=== PATIENT | female | born 1960 | race Caucasian/White ===

== ENCOUNTER → 2017-01-29 | Outpatient (CLI) | payer BC ==
[~2017-01-29] MED LIST: BUPR300T2 PO; Biotin PO; CYCL5TAB PO; DICLOFENAC SOD PO; FLUO20CA35 PO; FLUO40CA8 PO; HYDR-5688 PO; IBUP600T44 PO; LORA-741 PO; PRED20TA PO; PRLSR20 PO; PRM/625 PO; [UNRECOGNIZED DRUG - OTHER] PO
--- NOTE | 2017-02-01 14:26 | MAMMOGRAPHY REPORT ---
BILATERAL DIGITAL SCREENING MAMMOGRAM TOMOSYNTHESIS WITH CAD: 01/29/2017 CLINICAL HISTORY: Routine screening. Patient has no complaints. TECHNIQUE: Breast tomosynthesis in addition to standard 2D mammography was performed. Current study was also evaluated with a Computer Aided Detection (CAD) system. COMPARISON: Comparison is made to exams dated: 01/29/2016 mammogram, 12/21/2014 mammogram, 12/08/2013 m ammogram, 12/02/2012 mammogram, 11/27/2011 mammogram, and 11/21/2010 mammogram - [facility] nt. BREAST COMPOSITION: The tissue of both breasts is almost entirely fatty. FINDINGS: No suspicious masses, calcifications, or areas of architectural distortion are noted in e ither breast. There has been no significant interval change compared to prior exams. IMPRESSION: ACR BI-RADS CATEGORY 1: NEGATIVE There is no mammographic evidence of malignancy. A 1 year screening mammogram is recommended. The p atient will receive written notification of the results. Approximately 10% of breast cancers are not detected with mammography. A negative mammographic repor t should not delay biopsy if a clinically suggestive mass is present. Eneida Dempsey M.D. ah/:01/29/2017 15:56:55 Staff Development Coordinator: Coral PEREZ(Liz)(M), [facility] letter sent: Normal 1/2 BI-RADS Code: ACR BI-RADS Category 1: Negative
== END | disposition home or self-care (01) ==
LOC: C.MAMM 14:42
PROVIDERS: ATTEND Family Medicine
DX: Z12.31 Encounter for screening mammogram for malignant neoplasm of breast (principal)

== ENCOUNTER 2017-02-08 08:18 | Emergency (ER) | payer BC ==
[~2017-02-08] VITALS: Ht 157.5 cm; Wt 86.1 kg
[~2017-02-08 08:18] MED LIST changes: -CYCL5TAB PO; -FLUO20CA35 PO; -FLUO40CA8 PO; -HYDR-5688 PO; -IBUP600T44 PO; -PRED20TA PO; -PRLSR20 PO; -PRM/625 PO
[2017-02-08 08:19] VITALS: TEMP 36.8
[2017-02-08] MEDS ORDERED: SODIUM CHLORIDE 0.9% 1000ML 1,000 ML IV STA (08:32)
[2017-02-08] MEDS ORDERED: ONDANSETRON INJ 2 MG/ML 2 ML VIAL IV STA (08:32)
[2017-02-08] MEDS ORDERED: FLUO20CA35 PO (08:33)
[2017-02-08 08:39] VITALS: Ht 157.5 cm; Wt 86.1 kg
[2017-02-08 08:40] VITALS: O2SAT 98
--- NOTE | 2017-02-08 08:52 | DIAGNOSTIC IMAGING REPORT ---
CHEST ONE VIEW PORTABLE CLINICAL HISTORY: Weakness, dizziness. COMPARISON STUDY: 07/17/2012 FINDINGS: The cardiac and mediastinal contours are normal. There is no evidence of focal pulmonary consolidation. There is no evidence of failure. No pleural effusions are visualized.[ IMPRESSION: No active disease in the chest. Electronically signed by: Osei Holly M.D. 02/08/2017 8:51 AM Dictated Date/Time: 02/08/2017 8:51 AM
--- NOTE | 2017-02-08 09:12 | DIAGNOSTIC IMAGING REPORT ---
CT HEAD WITHOUT CONTRAST (CT) CLINICAL HISTORY: Weakness. Lightheadedness. Dizziness. COMPARISON STUDY: 11/03/2006 TECHNIQUE: Axial CT of the brain is performed from the vertex to the skull base. IV contrast was not administered for this examination. CT DOSE: 537.48 mGy.cm FINDINGS: No intra or extra-axial mass lesions are visualized. There is no CT evidence of acute cortical infarction. There is no evidence of midline shift. There is no acute hemorrhage. No calvarial fractures are visualized. There is no evidence of pathologic ventricular dilatation. There is no evidence of acute sinusitis IMPRESSION: Normal noncontrast head CT for age Electronically signed by: Osei Holly M.D. 02/08/2017 9:11 AM Dictated Date/Time: 02/08/2017 9:10 AM
[2017-02-08 09:18] LABS: URINE APPEARANCE CLEAR (CLEAR); URINE BILIRUBIN NEG (NEG); URINE COLOR YELLOW; URINE NITRITE NEG (NEG); URINE PH 5.5 (4.5-7.5); URINE SPECIFIC GRAVITY 1.007 (1.000-1.030); UROBILINOGEN NEG (NEG)
[2017-02-08 09:23] LABS: MANUAL MICROSCOPIC REQUIRED? NO; REVIEW REQ? NO
[2017-02-08 09:39] LABS: BASO % 0.4 %; BASO ABS # 0.03 K/uL (0-0.2); COMPLETE YES; EOS % 2.7 %; HEMATOCRIT 42.3 % (37-47); IG% 0.6 %; LYMPH % 24.7 %; LYMPH ABS # 1.76 K/uL (1.2-3.4); MEAN CELL VOLUME 87.8 fL (80-100); MEAN CORPUSCULAR HGB CONC 33.1 g/dl (32-36); MEAN PLATELET VOLUME 10.2 fL (7.4-10.4); MONO % 8.4 %; NEUT % 63.2 %; PLATELET COUNT 184 K/uL (130-400); RED BLOOD COUNT 4.82 M/uL (4.2-5.4); WHITE BLOOD COUNT 7.13 K/uL (4.8-10.8)
[2017-02-08 10:03] LABS: ALT/SGPT 22 U/L (12-78); AST/SGOT 17 U/L (15-37); BLOOD UREA NITROGEN 11 mg/dl (7-18); BUN/CREATININE RATIO 12.8 (10-20); CALCIUM 8.4 mg/dl (8.5-10.1); CARBON DIOXIDE 27 mmol/L (21-32); CHLORIDE 109 mmol/L (98-107); CREATININE 0.89 mg/dl (0.60-1.20); GLUCOSE 89 mg/dl (70-99); POTASSIUM 3.7 mmol/L (3.5-5.1); SODIUM 141 mmol/L (136-145)
[2017-02-08 10:14] LABS: ALKALINE PHOSPHATASE 98 U/L (45-117)
[2017-02-08 11:18] VITALS: BP 119/76; PULSE 84; O2SAT 98
--- NOTE | 2017-02-08 14:12 | EMERGENCY ROOM VISIT NOTE ---
History Report prepared by Milad: Mackenzie Ferrell Under the Supervision of: Dr. Kenneth Baldwin D.O. 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 She pulled over and called her and he brought her into the ED. The patient states that she felt weak and dizzy. She describes the dizziness as feeling like she was going to experience syncope and states that the room was not spinning around her. She states that she did not notice any focal weakness. The patient denies headaches, changes in vision, fevers, cough, rhinorrhea, sore throat, chest pain, and shortness of breath. She states that she developed nausea after she became dizzy, but she denies vomiting. The patient states that nausea has subsided since then, but it still comes back intermittently. The near-syncope does not seem to be associated with the nausea. She states that she has also experienced the dizziness intermittently since it occurred 45 minutes ago. The patient also developed lightheadedness upon being evaluated. She states that she has not started any new medications and has not missed any doses of her daily medications. Source of History: patient Onset: 45 minutes INFORMATICS MANAGER Position: head Quality: other (dizziness) Timing: intermittent Associated Symptoms: + nausea, No SOB, No chest pain, No cough, No fevers, No sorethroat, No vomiting Note: no focal weakness, no changes in vision, no rhinorrhea Review of Systems See HPI for pertinent positives & negatives. A total of 10 systems reviewed and were otherwise negative. Past Medical & Surgical Medical Problems: (1) Anxiety Family History No pertinent family history Social History Smoking Status: Former Smoker Marital Status: Housing Status: lives with family Occupation Status: employed Current/Historical Medications Scheduled Estrogens, Conjugated (Premarin), 0.625 MG PO DAILY Fluoxetine (Prozac), 20 MG PO DAILY Omeprazole (Prilosec), 20 MG PO DAILY Allergies Coded Allergies: Penicillins (Verified Allergy, Unknown, 02/08/17) Tetracyclines (Verified Allergy, Unknown, 02/08/17) Physical Exam Vital Signs Date Time Temp Pulse Resp B/P Pulse Ox O2 Delivery O2 Flow Rate FiO2 02/08/17 11:18 84 119/76 98 02/08/17 11:04 60 18 119/76 98 Room Air 02/08/17 10:17 54 18 107/69 98 Room Air 02/08/17 08:56 75 140/89 84 136/98 85 153/87 02/08/17 08:53 76 02/08/17 08:40 98 Room Air 02/08/17 08:40 98 Room Air 02/08/17 08:19 36.8 75 18 128/80 98 Room Air Physical Exam GENERAL: alert, sitting up in bed, well appearing, well nourished, no distress, non-toxic EYE EXAM: normal conjunctiva, PERRL and EOM's intact OROPHARYNX: no exudate, no erythema, lips, buccal mucosa, and tongue normal and mucous membranes are moist NECK: supple, no nuchal rigidity, no adenopathy, non-tender LUNGS: Clear to auscultation. Normal chest wall mechanics HEART: no murmurs, S1 normal and S2 normal ABDOMEN: abdomen soft, non-tender, normo-active bowel sounds, no masses, no rebound or guarding. BACK: Back is symmetrical on inspection and there is no deformity, no midline tenderness, no CVA tenderness. SKIN: no rashes and no bruising UPPER EXTREMITIES: upper extremities are grossly normal. LOWER EXTREMITIES: No pitting edema. NEURO EXAM: Normal sensorium, cranial nerves II-XII intact, normal speech, no weakness of arms, no weakness of legs. No drift. Finger to nose intact. Gross sensation intact. Medical Decision & Procedures ER Provider Diagnostic Interpretation: Radiology results as stated below per my review and the radiologist's interpretation: CHEST ONE VIEW PORTABLE FINDINGS: The cardiac and mediastinal contours are normal. There is no evidence of focal pulmonary consolidation. There is no evidence of failure. No pleural effusions are visualized.[ IMPRESSION: No active disease in the chest. Electronically signed by: Osei Holly M.D. 02/08/2017 8:51 AM Dictated Date/Time: 02/08/2017 8:[address] HEAD WITHOUT CONTRAST (CT) FINDINGS: No intra or extra-axial mass lesions are visualized. There is no CT evidence of acute cortical infarction. There is no evidence of midline shift. There is no acute hemorrhage. No calvarial fractures are visualized. There is no evidence of pathologic ventricular dilatation. There is no evidence of acute sinusitis IMPRESSION: Normal noncontrast head CT for age Electronically signed by: Osei Holly M.D. 02/08/2017 9:11 AM Dictated Date/Time: 02/08/2017 9:10 AM Laboratory Results 02/08/17 09:18 Red Blood Count 4.82, Mean Corpuscular Volume 87.8, Mean Corpuscular Hemoglobin 29.0, Mean Corpuscular Hemoglobin Concent 33.1, Mean Platelet Volume 10.2, Neutrophils (%) (Auto) 63.2, Lymphocytes (%) (Auto) 24.7, Monocytes (%) (Auto) 8.4, Eosinophils (%) (Auto) 2.7, Basophils (%) (Auto) 0.4, Neutrophils # (Auto) 4.51, Lymphocytes # (Auto) 1.76, Monocytes # (Auto) 0.60, Eosinophils # (Auto) 0.19, Basophils # (Auto) 0.03 02/08/17 09:18 Test 02/08/17 00:00 02/08/17 08:43 02/08/17 09:18 Urine Color YELLOW Urine Appearance CLEAR (CLEAR) Urine pH 5.5 (4.5-7.5) Urine Specific [place] 1.007 (1.000-1.030) Urine Protein NEG (NEG) Urine Glucose (UA) NEG (NEG) Urine Ketones NEG (NEG) Urine Occult Blood NEG (NEG) Urine Nitrite NEG (NEG) Urine Bilirubin NEG (NEG) Urine Urobilinogen NEG (NEG) Urine Leukocyte Esterase NEG (NEG) Bedside Glucose 131 mg/dl (70-90) White Blood Count 7.13 K/uL (4.8-10.8) Red Blood Count 4.82 M/uL (4.2-5.4) Hemoglobin 14.0 g/dL (12.0-16.0) Hematocrit 42.3 % (37-47) Mean Corpuscular Volume 87.8 fL (80-100) Mean Corpuscular Hemoglobin 29.0 pg (25-34) Mean Corpuscular Hemoglobin Concent 33.1 g/dl (32-36) Platelet Count 184 K/uL (130-400) Mean Platelet Volume 10.2 fL (7.4-10.4) Neutrophils (%) (Auto) 63.2 % Lymphocytes (%) (Auto) 24.7 % Monocytes (%) (Auto) 8.4 % Eosinophils (%) (Auto) 2.7 % Basophils (%) (Auto) 0.4 % Neutrophils # (Auto) 4.51 K/uL (1.4-6.5) Lymphocytes # (Auto) 1.76 K/uL (1.2-3.4) Monocytes # (Auto) 0.60 K/uL (0.11-0.59) Eosinophils # (Auto) 0.19 K/uL (0-0.5) Basophils # (Auto) 0.03 K/uL (0-0.2) RDW Standard Deviation 40.1 fL (36.4-46.3) RDW Coefficient of Variation 12.5 % (11.5-14.5) Immature Granulocyte % (Auto) 0.6 % Immature Granulocyte # (Auto) 0.04 K/uL (0.00-0.02) Anion Gap 5.0 mmol/L (3-11) Est Creatinine Clear Calc Drug Dose 72.7 ml/min Estimated GFR () 84.6 Estimated GFR (Non- 73.0 BUN/Creatinine Ratio 12.8 (10-20) Calcium Level 8.4 mg/dl (8.5-10.1) Total Bilirubin 0.3 mg/dl (0.2-1) Direct Bilirubin < 0.1 mg/dl (0-0.2) Aspartate Amino Transf (AST/SGOT) 17 U/L (15-37) Alanine Aminotransferase (ALT/SGPT) 22 U/L (12-78) Alkaline Phosphatase 98 U/L (45-117) Troponin I < 0.015 ng/ml (0-0.045) Total Protein 7.1 gm/dl (6.4-8.2) Albumin 3.4 gm/dl (3.4-5.0) Lipase 203 U/L (73-393) Thyroid Stimulating Hormone (TSH) 2.940 uIu/ml (0.300-4.500) Laboratory results per my review. Medications Administered Medications (Trade) Dose Ordered Sig/Nahomi Route Start Time Stop Time Status Last Admin Dose Admin Ondansetron HCl 4 mg 4 mg NOW STAT IV 5/15/17 08:32 02/08/17 08:34 DC 02/08/17 09:25 4 MG Sodium Chloride (Nss 1000ml) 1,000 ml @ 999 mls/hr Q1H1M STAT IV 02/08/17 08:32 02/08/17 09:32 DC 02/08/17 09:26 999 MLS/HR ECG Indication: syncope (near) Rate (beats per minute): 66 Rhythm: sinus rhythm Findings: no ectopy, other (normal axis, normal intervals) ED Course ED COURSE: Vital signs were reviewed and showed normal. The patients medical record was reviewed The above diagnostic studies were performed and reviewed. ED treatments and interventions as stated above. 0826: The patient was evaluated in room A11. A complete history and physical examination was performed. 0832: Ordered Sodium Chloride 1000 ml @ 999 mls/hr IV, Zofran Inj 4 mg IV 1018: I reassessed and updated the patient. 1112: Upon reevaluation, the patient is doing well. I discussed my findings with the patient and she understands and agrees with the treatment plan. Based on the patients age, coexisting illnesses, exam and lab findings the decision to treat as an outpatient was made. The patient remained stable while under my care. The patient appeared well at the time of discharge. Medical Decision Differential diagnosis includes etiologies such as benign positional vertigo, dehydration, hypovolemia, anemia, tumor, infection, hypoglycemia, electrolyte abnormalities, cardiac sources, intracerebral event, toxicologic, neurologic, as well as others were entertained. Patient is a 56-year-old female who presents the ER for feeling as though she is going to pass out. She notes that she was driving when this occurred. She did have some nausea. She is no other complaints. Complete neurologically intact. She is a nurse. CBC along with BMP, LFTs, troponin and lipase are normal. TSH is normal. UA was negative. Chest x-ray along with CT head was normal. Patient is given a bolus and normal saline and Zofran and felt significantly better. She was observed and discharged with an unremarkable EKG to follow-up with her primary care doctor. I favor this is vasovagal cannot be certain at this time has been nausea did not always can coincide with her lightheadedness. Discussed with Pt concerning signs and symptoms to watch out for. Pt was instructed to follow up with their PCP and discussed with the patient their option to return to the ED at anytime for persistent or worsening symptoms. The appropriate anticipatory guidance and out-patient management, including indications for return to the emergency department, were explained at length to the patient and understood. Impression Primary Impression: Near syncope Scribe Attestation The scribe's documentation has been prepared under my direction and personally reviewed by me in its entirety. I confirm that the note above accurately reflects all work, treatment, procedures, and medical decision making performed by me. Departure Information Dispostion Home / Self-Care Referrals Alayna Borges D.O. (PCP) Forms HOME CARE DOCUMENTATION FORM, IMPORTANT VISIT INFORMATION Patient Instructions ED Near Syncope Unkn, My [facility] Additional Instructions Please follow up with your primary care doctor with in the next 24 hours. Any worsening of your symptoms, please return to the ED immediately. For any chest pain, shortness breath, passing out, nausea, vomiting, diarrhea, or any other concerning signs or symptoms from your standpoint. These refrain from driving follow-up with your primary care doctor within 24 hours as stated above.
== END 2017-02-08 11:21 | disposition home or self-care (01) ==
LOC: C.EDB 08:20 → C.EDA 11:21
DX: R55 Syncope and collapse (principal); R42 Dizziness and giddiness; F41.9 Anxiety disorder, unspecified; Z87.891 Personal history of nicotine dependence; Z79.899 Other long term (current) drug therapy

== ENCOUNTER 2017-05-21 08:04 | Emergency (ER) | payer BC ==
[~2017-05-21] VITALS: Ht 157.5 cm; Wt 87.8 kg
[~2017-05-21 08:04] MED LIST changes: -BUPR300T2 PO; -Biotin PO; -DICLOFENAC SOD PO; +FLUO20CA35 PO; -LORA-741 PO; -[UNRECOGNIZED DRUG - OTHER] PO
[2017-05-21 08:07] VITALS: TEMP 36.6; Ht 157.5 cm; Wt 87.8 kg
[2017-05-21] MEDS ORDERED: HYDR-5688 PO (08:28)
[2017-05-21] MEDS ORDERED: CYCL5TAB PO (08:28)
[2017-05-21] MEDS ORDERED: PRED20TA PO (08:28)
[2017-05-21] MEDS ORDERED: IBUP600T44 PO (08:28)
[2017-05-21] MEDS ORDERED: FLUO40CA8 PO (08:28)
--- NOTE | 2017-05-21 08:29 | EMERGENCY ROOM VISIT NOTE ---
History Report prepared by Milad: Ana Greenfield Under the Supervision of: Dr. Nikolas Obrien M.D. First contact with patient: 08:16 Chief Complaint: BACK PAIN Stated Complaint: RIGHT LOWER BACK PAIN - RADIATING TO GROIN History of Present Illness The patient is a 56 year old female who presents to the Emergency Room with complaints of intermittent back pain that began one week ago. She currently rates her discomfort as a 6/10 in severity. The patient states that one week ago she was lifting her granddaughter out of a swing when she injured her right lower back. She states that she saw her PCP and notes that she was started on 5 mg of Flexeril three times per day. The patient states that she was feeling better for a few days, but states that her pain returned. She states that she was instructed to increase her Flexeril use to 10 mg three times per day and was additionally placed on Prednisone. The patient states that today she could hardly get out of bed. She denies any re-injury of the area and denies and new heavy lifting. The patient denies any previous back problems. She states that the pain radiates from her right lower back to her right side. The patient denies any loss of function of her right leg. She denies any fever, vomiting, or urinary symptoms. The patient states that she has been using 600 mg of Ibuprofen every 4-6 hours. She additionally reports use of Hydrocodone without relief of her symptoms. Source of History: patient Onset: one week ago Position: back (right lower) Symptom Intensity: 6/10 Timing: intermittent Associated Symptoms: No fevers, No vomiting, No urinary symptoms Review of Systems See HPI for pertinent positives & negatives. A total of 10 systems reviewed and were otherwise negative. Past Medical & Surgical Medical Problems: (1) Anxiety Family History No pertinent family history Social History Smoking Status: Former Smoker Marital Status: Housing Status: lives with family Occupation Status: employed Current/Historical Medications Scheduled Cyclobenzaprine Hcl (Flexeril), 5 MG PO TID Estrogens, Conjugated (Premarin), 0.625 MG PO DAILY Fluoxetine (Prozac), 40 MG PO DAILY Omeprazole (Prilosec), 20 MG PO DAILY Prednisone (Prednisone), 40 MG PO DAILY Scheduled PRN Hydrocodone/Acetaminophen 5MG/325MG ([place] 5MG/325MG), 1 TABLET PO DAILY PRN for Pain Ibuprofen (Motrin), 600 MG PO Q4 PRN for Pain Allergies Coded Allergies: Penicillins (Verified Allergy, Unknown, 05/21/17) Tetracyclines (Verified Allergy, Unknown, 05/21/17) Physical Exam Vital Signs Date Time Temp Pulse Resp B/P (MAP) Pulse Ox O2 Delivery O2 Flow Rate FiO2 05/21/17 09:20 72 18 129/88 98 05/21/17 08:07 36.6 74 18 131/91 97 Room Air Physical Exam GENERAL: Patient is in no acute distress. HEENT: No acute trauma, normocephalic atraumatic, mucous membranes moist, no nasal congestion, no scleral icterus. NECK: No stridor, no adenopathy, no meningismus, trachea is midline. LUNGS: Clear to auscultation bilaterally, no wheeze, no rhonchi, breath sounds equal. HEART: Without murmurs gallops or rubs, regular rate and rhythm. ABDOMEN: Soft, nontender, bowel sounds positive, no hernias, no peritonitis. BACK: Spasm to right lumber musculature, with soreness over the right SI joint, pain worsens with movement, mid lumber spine nontender EXTREMITIES: No cyanosis or edema, full range of motion of all the joints without pain or difficulty, no signs for acute trauma. NEUROLOGIC: Oriented x 3, no acute motor or sensory deficits, no focal weakness. 2/4 patellar and Achilles reflexes bilaterally SKIN: No rash, no jaundice, no diaphoresis. Medical Decision & Procedures ER Provider Diagnostic Interpretation: X-ray results as stated below per interpretation by me and the radiologist: LUMBAR SPINE 5 VIEWS HISTORY: right back pain COMPARISON: None. FINDINGS: There is no fracture. No subluxation. Disc spaces are preserved. There are few tiny osteophytes within the mid to lower lumbar spine. The sacrum appears intact. IMPRESSION: No fracture or subluxation within the lumbar spine. Electronically signed by: Mihir Sherman M.D. 05/21/2017 8:46 AM Dictated Date/Time: 05/21/2017 8:45 AM ED Course 0817: The patient was evaluated in room A11B. A complete history and physical exam was performed. 0859: I reevaluated the patient and she is resting comfortably. I discussed the exam findings with her and I discussed the treatment plan. She verbalized complete understanding and agreement. She is ready to go home. Medical Decision The patient is a 56 year old female who presents to the ED with complaints of lower back pain. Differential diagnoses considered include muscular spasm, nerve impingement, sciatic, disc disease. The patient presents with right back pain moving to her right hip. The pain began when she was lifting. The patient has not had any urinary difficulty or right leg weakness. She is on prednisone and Flexeril and Advil. The patient did not want anything for pain during her ER stay. Films of the lumbar spine do not show fracture or malalignment. The patient's pain is likely musculoskeletal, possibly disc related. She is being discharged on the same medications she is currently taking. She did not want anything stronger for pain. The patient was encouraged to follow with her doctors office for a possible PT referral. Massage was suggested. If worsening , she can return. Impression Primary Impression: Right-sided back pain Scribe Attestation The scribe's documentation has been prepared under my direction and personally reviewed by me in its entirety. I confirm that the note above accurately reflects all work, treatment, procedures, and medical decision making performed by me. Departure Information Dispostion Home / Self-Care Referrals Alayna Borges D.O. (PCP) Forms HOME CARE DOCUMENTATION FORM, IMPORTANT VISIT INFORMATION Patient Instructions My [facility] Additional Instructions continue the meds as before films today were ok rest no lifting or stooping over heat massage consider physical therapy return if worsening
[2017-05-21] MEDS ORDERED: PRLSR20 PO (08:33)
--- NOTE | 2017-05-21 08:47 | DIAGNOSTIC IMAGING REPORT ---
LUMBAR SPINE 5 VIEWS HISTORY: right back pain COMPARISON: None. FINDINGS: There is no fracture. No subluxation. Disc spaces are preserved. There are few tiny osteophytes within the mid to lower lumbar spine. The sacrum appears intact. IMPRESSION: No fracture or subluxation within the lumbar spine. Electronically signed by: Mihir Sherman M.D. 05/21/2017 8:46 AM Dictated Date/Time: 05/21/2017 8:45 AM
[2017-05-21 09:20] VITALS: BP 129/88; PULSE 72; O2SAT 98
[2017-05-21] MEDS ORDERED: PRM/625 PO (21:20)
== END 2017-05-21 09:21 | disposition home or self-care (01) ==
LOC: C.EDB 08:05 → C.EDA 09:21
DX: M54.5 Low back pain (principal); F41.9 Anxiety disorder, unspecified; Z87.891 Personal history of nicotine dependence

== ENCOUNTER → 2018-02-04 | Outpatient (CLI) | payer BC ==
[~2018-02-04] MED LIST changes: +CYCL5TAB PO; -FLUO20CA35 PO; +FLUO40CA8 PO; +HYDR-5688 PO; +IBUP600T44 PO; +PRED20TA PO; +PRLSR20 PO; +PRM/625 PO
--- NOTE | 2018-02-07 07:43 | MAMMOGRAPHY REPORT ---
BILATERAL DIGITAL SCREENING MAMMOGRAM TOMOSYNTHESIS WITH CAD: 02/04/2018 CLINICAL HISTORY: Routine screening. Patient has no complaints. TECHNIQUE: Breast tomosynthesis in addition to standard 2D mammography was performed. Current study was also evaluated with a Computer Aided Detection (CAD) system. COMPARISON: Comparison is made to exams dated: 01/29/2017 mammogram, 01/29/2016 mammogram, 12/21/2014 brian mogram, 12/08/2013 mammogram, 12/02/2012 mammogram, and 11/08/2009 mammogram - [facility] er. BREAST COMPOSITION: The tissue of both breasts is almost entirely fatty. FINDINGS: No suspicious masses, calcifications, or areas of architectural distortion are noted in ei ther breast. There has been no significant interval change compared to prior exams. IMPRESSION: ACR BI-RADS CATEGORY 1: NEGATIVE There is no mammographic evidence of malignancy. A 1 year screening mammogram is recommended. The pa tient will receive written notification of the results. Approximately 10% of breast cancers are not detected with mammography. A negative mammographic report should not delay biopsy if a clinically suggestive mass is present. Eneida Dempsey M.D. ah/:02/04/2018 15:49:09 Injection Press Operator: Gwen PEREZ(Liz)(M), [facility] letter sent: Normal 1/2 BI-RADS Code: ACR BI-RADS Category 1: Negative
== END | disposition home or self-care (01) ==
LOC: C.MAMM 15:12
PROVIDERS: ATTEND Family Medicine
DX: Z12.31 Encounter for screening mammogram for malignant neoplasm of breast (principal)